=== PATIENT | female | born 2000 | race Hispanic/Latino ===

== ENCOUNTER 2019-12-27 18:37 | Inpatient (IN) | payer BC, OTHER ==
[~2019-12-27 18:37] MED LIST: Bupivacaine HCl 0.5%/Epinephrine 1:200,000/PF 30 ml Vial ONE; Bupivacaine/Epinephrine 0.25% 30 ML VIAL ONE; Lidocaine 2% MPF 10 ML AMP (For Epidural Use) ONE
[2019-12-27 19:17] VITALS: BMI 44.9
[2019-12-27] MEDS ORDERED: NS / Oxytocin 40 units/1000ml 1,000 ML IV PRN (19:38)
[2019-12-27] MEDS ORDERED: Ondansetron PF 4 MG/2 ML Vial IVP PRN (19:38)
[2019-12-27] MEDS ORDERED: Lidocaine 1% (PF) 30 ML VIAL SC PRN (19:38)
[2019-12-27] MEDS ORDERED: hydrALAZINE 20 MG/ML VIAL SLOW IVP PRN (19:38)
[2019-12-27] MEDS ORDERED: Promethazine HCl 25 MG/ML VIAL IM PRN (19:38)
[2019-12-27] MEDS ORDERED: Misoprostol 200 MCG TAB PR PRN (19:43)
[2019-12-27] MEDS ORDERED: Ibuprofen 800 MG TAB PO PRN (19:43)
[2019-12-27] MEDS ORDERED: Carboprost 250 MCG/ML AMP IM PRN (19:43)
[2019-12-27] MEDS ORDERED: Methylergonovine 0.2 MG/ML VIAL IM PRN (19:43)
[2019-12-27] MEDS ORDERED: Diphenoxylate HCl/Atropine Tablet PO PRN ×2 (19:43)
--- NOTE | 2019-12-27 19:55 | PDOC.LDHP ---
Labor and Delivery H&P Chief complaint: loss of fluid HPI: 19YO @ 38.4 WGA presenting for suspected SROM. Reports earlier today while sitting at home @ ~1300 she felt a sudden gush of clear fluid & every time she got up since she felt continued LOF. States she lost her mucus plug yesterday. Denies any abnormal vaginal DC or VB. + FM. No reported complications this . Current gestational age (weeks): 38 (38.4) Due date: 01/06/20 Dating criteria: last menstrual period Grav: 1 Para: 0 OB History Details: UTI in early s/p treatment, no other issues Current complications: other (late to care/transfer from [place] & reported UTI s/p tx early in ) Abnormal US findings: No Past Medical History: none Current medications: pre- vitamins Previous surgical history: other (tonsillectomy) Allergies/Adverse Reactions: Allergies Allergy/AdvReac Type Severity Reaction Status Date / Time No Known Drug Allergies Allergy Verified 12/27/19 19:08 Social history: none - Physical Exam Vital signs reviewed and normal: yes General: NAD, resting Heart: RRR Lungs: nonlabored breathing Abdomen: NTTP Extremeties: no edema FHT: category 1 [place] contractions every: 4-10 minutes - Vaginal Exam cm dilated: 1 (1.5) Effacement: 50% (40%) Station: -2 - OB Labs Blood type: O RH: positive Antibody Screen: negative HIV: negative RPR: negative HEPSAg: negative 1 hour GCT: negative (74) GBS: negative Urine drug screen: negative Rubella: immune - Assessment L&D Assessment: term rupture in membranes - Plan Plan: admit to L&D -: 19YO @ 38.4 WGA who presented for SROM earlier today. Term SROM: - Confirmed on exam on arrival. No regular painful contractions noted on monitor so far. FHTs cat 1. SVE 1.5/40/-2. Will admit to L&D for routine labor management & augmentation if contractions do not become more regular over the next few hours. Dispo: Admit to L&D for routine labor management. Addendum - Attending - Attending Attestation Date/Time: 12/28/19 0038 I personally evaluated the patient and discussed the management with Dr. Thompson. I agree with the History, Examination, Assessment and Plan documented above.
[2019-12-27 21:03] LABS: Hemoglobin 10.7 g/dL (12.0-16.0); Mean Corpuscular HGB CONC 33.3 g/dL (32.0-36.0); Mean Corpuscular Hemoglobin 26.8 pg (27.0-31.0); Mean Corpuscular Volume 80.6 fL (78.0-98.0); Mean Platelet Volume 7.5 fL (7.4-10.4); Platelet Count 170 thou/uL (130-400); RBC Distribution Width 14.3 % (11.5-14.5); Red Blood Cell (RBC) Count 3.99 mill/uL (4.20-5.40); White Blood Cell (WBC) Count 10.4 thou/uL (4.8-10.8)
[2019-12-27 21:41] LABS: Syphilis Antibody Nonreactive (Nonreactive); Syphilis Antibody Index 0.04 S/CO (<1.00 Non-Reactive)
[2019-12-27] MEDS ORDERED: NS w/ Oxytocin 10 units 500 ML IV SCH (22:15)
[2019-12-27 22:16] LABS: HBSAg Index 0.13 S/CO (0-0.99); Hep B Surf Ag Non-Reactive S/CO (NonReactive)
[2019-12-28] MEDS: Lactated Ringer's 1,000 ML IV SCH ×3 (03:31→10:13)
[2019-12-28] MEDS: NS w/ Oxytocin 10 units 500 ML IV SCH (03:32)
[2019-12-28] MEDS ORDERED: Butorphanol Tartrate 1 MG/ML VIAL ONE (04:36)
[2019-12-28] MEDS ORDERED: Butorphanol Tartrate 1 MG/ML VIAL SLOW IVP PRN (04:37)
--- NOTE | 2019-12-28 06:48 | PDOC.LDPN ---
Labor & Delivery Progress Note - Subjective Subjective: painful contractions - Objective Vital signs reviewed and normal: yes General: NAD, breathing through contractions Dilation: 2 Effacement: 50% Station: -2 FHT: category 1 [place] contractions every: 3 minutes Resuscitative measures: maternal IV fluids - Assessment (1) Spontaneous rupture of amniotic membranes Code(s): [id number] - Current Visit: Yes Status: Acute (2) Term Code(s): Z34.90 - ENCNTR FOR SUPRVSN OF NORMAL , UNSP, UNSP TRIMESTER Current Visit: Yes Status: Acute Plan: continue plan of care -: Term IOL 05/12 SROM: - Persistent Cat 1 strip. Pain controlled with IV stadol. Does not want epidural for now. SVE /-2 @ 0334. Will continue to titrate pitocin to maintain adequate contractions as tolerated by fetus. Dispo: Continue routine labor management w/ pitocin for labor augmentation. Addendum - Attending - Attending Attestation Date/Time: 12/28/19 7784 I personally evaluated the patient and discussed the management with Dr. Thompson. I agree with the History, Examination, Assessment and Plan documented above.
[2019-12-28] MEDS ORDERED: Fentanyl 4 mcg/Bup 0.1% Cadd 100 ML ONE ×2 (07:07→15:35)
[2019-12-28] MEDS ORDERED: Naloxone HCl 0.4 mg/ml Vial IVP PRN ×4 (10:48→23:06)
[2019-12-28] MEDS ORDERED: Ondansetron PF 4 MG/2 ML Vial IVP PRN ×2 (10:48→23:06)
[2019-12-28] MEDS ORDERED: diphenhydrAMINE 50 MG/ML VIAL IVP PRN ×2 (10:48→23:06)
[2019-12-28] MEDS ORDERED: EPHEDRINE 25 MG/5 ML SYRINGE SLOW IVP PRN (10:48)
[2019-12-28] MEDS ORDERED: Promethazine HCl 25 MG/ML VIAL IM PRN ×2 (10:48→23:06)
[2019-12-28] MEDS ORDERED: Lactated Ringer's 500 ML IV PRN (10:48)
[2019-12-28] MEDS ORDERED: Acetaminophen 325 MG TAB PO PRN (10:48)
[2019-12-28] MEDS ORDERED: Communication Order-Pharmacy FS SCH ×2 (11:00→23:15)
[2019-12-28] MEDS ORDERED: Fentanyl 4 mcg/Bupivacaine 0.1% Cassette 100 ML EPIDURAL SCH (11:00)
[2019-12-28 14:49] LABS: SARS-CoV-2 MS2 Positive; SARS-CoV-2 N Gene Negative; SARS-CoV-2 S Gene Negative; SARS-CoV-2 by NAA Not Detected (NotDetected); SARS-CoV-2 orf1ab Negative
[2019-12-28] MEDS ORDERED: Bicitra 30 ML UDCUP PO SCH (21:00)
[2019-12-28] MEDS ORDERED: CEFAZOLIN 3 GM in Premix Bag 1 BAG IVPB SCH (21:00)
[2019-12-28] MEDS ORDERED: Azithromycin 500 MG in Sodium Chloride 0.9% 250 ML 250 ML IVPB SCH (21:00)
[2019-12-28] MEDS ORDERED: CEFAZOLIN 3 GM in Sodium Chloride 0.9% 100 ML IVPB SCH (22:15)
[2019-12-28] MEDS ORDERED: Lidocaine 2% 10 ML INJ ONE (22:29)
[2019-12-28] MEDS ORDERED: Dexamethasone 4 mg/ml Vial ONE (22:29)
[2019-12-28] MEDS ORDERED: PHENYLEPHRINE-NS 100 MCG/ML 10 ML SYRINGE ONE (22:29)
[2019-12-28] MEDS ORDERED: Oxytocin 10 UNITS/ML VIAL ONE (22:29)
[2019-12-28] MEDS ORDERED: Ondansetron PF 4 MG/2 ML Vial ONE (22:29)
[2019-12-28] MEDS ORDERED: Promethazine HCl 25 MG/ML VIAL ONE (22:53)
[2019-12-28] MEDS ORDERED: Methylergonovine 0.2 MG/ML VIAL ONE (22:55)
[2019-12-28] MEDS ORDERED: Misoprostol 200 MCG TAB ONE (22:55)
[2019-12-28] MEDS ORDERED: Meperidine HCl/PF 25 MG/ML VIAL SLOW IVP PRN (23:06)
[2019-12-28] MEDS ORDERED: Naloxone HCl 0.4 mg/ml Vial IV PRN (23:06)
[2019-12-28] MEDS ORDERED: HYDROmorphone 2 MG/ML VIAL SLOW IVP PRN (23:06)
[2019-12-28] MEDS ORDERED: L&D-Morphine 4 MG/ML VIAL SLOW IVP PRN (23:06)
[2019-12-28] MEDS ORDERED: Ondansetron HCl/PF 4 MG/2 ML Vial IVP PRN (23:06)
[2019-12-28] MEDS ORDERED: Promethazine HCl 25 MG SUPP PR PRN (23:06)
[2019-12-28] MEDS ORDERED: Midazolam HCl 2 mg/2 ml Vial ONE (23:13)
[2019-12-28] MEDS ORDERED: Fentanyl 100 MCG/2 ML VIAL ONE (23:27)
[2019-12-28] MEDS ORDERED: Ketamine 50 MG/ML (10ML VIAL) ONE (23:29)
--- NOTE | 2019-12-29 01:40 | PDOC.OPDEL ---
OB Operative/Delivery Note - Additional Findings/Plan Compilations/Other Findings: Date of Procedure: 12/28/2019 Primary Surgeon: Dr. Manish Newell Resident Surgeon: Dr. Walter Pruitt Procedure: Repeat low transverse caesarean section Preoperative Diagnosis: 1)Term intrauterine 2)Arrest of labor 3)Prelabor Rupture of Membranes Postoperative Diagnosis: 1)same as above Anesthesia: spinal Indications: The patient is a 19 year old G1,P0 female at 38.5 weeks gestation who presented to L&D for PROM and failed induction of labor. Procedure in Detail: After risks, benefits, and alternatives were explained to the patient, she gave informed consent. Pre-operative antibiotics included Cefazolin 3 gram IV and Azithromycin 500mg IV. The patient was taken to the operating room. She was placed in the supine position with a left tilt and prepped and draped in usual sterile fashion. Epidural anesthesia was confirmed adequate with testing. A Pfannenstiel incision was made with a scalpel and was bluntly carried down to the level of the fascia which was sharply nicked. The fascial cut was extended bilaterally with Waddell sissors. The inferior and superior edges of the cut fascial edges were elevated with Tye clamps and the underlying rectus muscles were bluntly dissected free. The recti were divided digitally and retracted manually. The peritoneum was knicked with a waddell scissors, digitally entered and retracted manually. The uterine surface was explored to ensure no anterior adhesions. Yusuf-O device was placed. Bladder flap was created with Metzenbaum scissors. A low transverse score was made with the scalpel and the uterus was entered in the midline with a hemostat. Clear fluid was seen. The hysterotomy was extended manually. The infant was noted to be vertex and was easily delivered by fundal pressure. Mouth and nares were bulb suctioned. Cord clamped and cut and grossly normal female was handed to waiting nurse. Cord blood was obtained. Placenta was manually extracted, found to be intact with 3 vessel cord and discarded. The endometrium was curetted with a dry lap. Bleeding edges were clamped with ring forceps. The uterus was closed with a running locking #1 mono followed by a running non-locking #1 mono horizontal imbricating suture. The serosal edge of bladder flap had a few small bleeders that were cauterized. Following this hemostasis was noted. The abdomen was irrigated with saline and suctioned free of clots. The yusuf-o device was removed and the hysterotomy was again noted to be hemostatic. The peritoneum was closed with 2-0 chromic. The fascia was closed with a running non-locking 0- Vicryl suture. The subcutaneous tissue was irrigated and closed with a running 2 layer stitch with 2-0 plain. The skin was approximated with a running subcuticular 4-0 monocryl. The patient tolerated the procedure well and was taken to the recovery room in stable condition. QBL Blood Loss: 975 ml Complications: None Specimens: Cord blood sent to lab for blood type Findings: Grossly normal female with Apgars of 8 and 9. Grossly normal placenta with 3 vessel cord discarded. Drains: Nguyen to gravity draining blood tinged urine (blood tinged prior to c- section likely due to labor trauma)
[2019-12-29] MEDS ORDERED: Ondansetron PF 4 MG/2 ML Vial IVP PRN (01:58)
[2019-12-29] MEDS ORDERED: HYDROcodone/Acetaminophen 5/325 mg Tablet PO PRN ×3 (01:58→09:04)
[2019-12-29] MEDS ORDERED: Lanolin Ointment 7 GM TUBE TOP PRN (01:58)
[2019-12-29] MEDS ORDERED: hydrALAZINE 20 MG/ML VIAL SLOW IVP PRN (01:58)
[2019-12-29] MEDS ORDERED: Simethicone Chewable 80 MG TAB PO PRN (01:58)
[2019-12-29] MEDS ORDERED: diphenhydrAMINE 25 MG CAP PO PRN (01:58)
[2019-12-29] MEDS: Ketorolac Tromethamine 30 MG/ML VIAL IVP SCH ×2 (04:41→14:40)
--- NOTE | 2019-12-29 08:18 | PRG ---
DATE OF SERVICE: 12/29/2019 SUBJECTIVE: Patient is postop day #1, status post a primary for arrest of labor. At this point in time, she still has a Nguyen in place. She is tolerating liquid, having good pain control. OBJECTIVE: VITAL SIGNS: This morning, blood pressure is 118/65, temperature 98.1, pulse of 78, respiratory rate of 18. GENERAL: She appears to be in no acute distress. She is alert, oriented, cooperative, and pleasant to interact with. ABDOMEN: Fundus is firm. Incision is clean, dry, and intact, covered with a dressing. ASSESSMENT AND PLAN: Anticipate discharge of Nguyen today. Advance diet and assess pain control. Job ID: [id number]
[2019-12-29] MEDS ORDERED: Adacel (T-DAP) 0.5 ML SYRINGE IM ONE (09:00)
[2019-12-29] MEDS: Ferrous Sulfate 325 MG TAB PO SCH ×2 (09:31→17:09)
[2019-12-29] MEDS: Prenatal Vitamin 1 TAB PO SCH (09:31)
[2019-12-29] MEDS: HYDROcodone/Acetaminophen 5/325 mg Tablet PO PRN ×2 (16:32→22:10)
[2019-12-29] MEDS: Ibuprofen 800 MG TAB PO SCH (22:09)
[2019-12-30] MEDS: HYDROcodone/Acetaminophen 5/325 mg Tablet PO PRN ×3 (04:32→20:38)
[2019-12-30 05:47] LABS: Hemoglobin 8.5 g/dL (12.0-16.0); Mean Corpuscular HGB CONC 33.9 g/dL (32.0-36.0); Mean Corpuscular Hemoglobin 27.6 pg (27.0-31.0); Mean Corpuscular Volume 81.6 fL (78.0-98.0); Mean Platelet Volume 8.1 fL (7.4-10.4); Platelet Count 158 thou/uL (130-400); RBC Distribution Width 14.4 % (11.5-14.5); Red Blood Cell (RBC) Count 3.09 mill/uL (4.20-5.40); White Blood Cell (WBC) Count 9.8 thou/uL (4.8-10.8)
--- NOTE | 2019-12-30 06:16 | PDOC.PP ---
Post Progress Note Post Day #: POD2 Subjective: Doing well. No c/o. PO intake tolerated: yes Flatus: yes Ambulation: yes Vital Signs (12 hours) Temp Pulse Resp BP Pulse Ox 12/30/19 04:25 98.2 F 72 16 114/62 98 12/30/19 00:40 98.1 F 76 20 108/53 L 97 12/29/19 20:40 98.6 F 72 16 99/56 L 97 Weight Weight 122.47 kg - Physical Examination General: NAD Respiratory: non-labored breathing Abdominal: appropriately TTP Skin: CS incision dry & intact Neurological: no gross focal deficits Psychiatric: normal affect Result Diagrams: 12/30/19 05:23 Additional Labs: Post Labs Hep Bs Antigen Non-Reactive S/CO (NonReactive) 12/27/19 20:06 Blood Type O POSITIVE 12/27/19 21:39 (1) Spontaneous rupture of amniotic membranes Code(s): [id number] - Status: Acute (2) Term Code(s): Z34.90 - ENCNTR FOR SUPRVSN OF NORMAL , UNSP, UNSP TRIMESTER Status: Acute - Assessment/Plan Doing well. Ambulate. Advance diet. Routine postop care. Anticipate home 12/30.
[2019-12-30] MEDS: Ibuprofen 800 MG TAB PO SCH ×3 (06:39→20:38)
[2019-12-30] MEDS: Ferrous Sulfate 325 MG TAB PO SCH ×2 (07:41→16:34)
[2019-12-30] MEDS: Prenatal Vitamin 1 TAB PO SCH (07:41)
[2019-12-30] MEDS: Ketorolac Tromethamine 30 MG/ML VIAL IVP SCH (07:49)
[2019-12-30] MEDS: NS w/ Oxytocin 10 units 500 ML IV SCH (07:51)
[2019-12-31] MEDS: Ibuprofen 800 MG TAB PO SCH ×2 (05:42→13:44)
[2019-12-31] MEDS: Ferrous Sulfate 325 MG TAB PO SCH ×2 (08:26→18:29)
[2019-12-31] MEDS: Prenatal Vitamin 1 TAB PO SCH (08:26)
[2019-12-31 09:29] VITALS: BP 127/64; TEMP 98.1
--- NOTE | 2019-12-31 10:53 | PDOC.BPN ---
- Brief Progress Note Encounter Date: 12/31/19 Encounter Time: 10:50 Patient was DC'd to home earlier per Dr Newell. Will keep as B&B courtesy stay.
[2019-12-31] MEDS: HYDROcodone/Acetaminophen 5/325 mg Tablet PO PRN (11:58)
--- NOTE | 2020-01-01 04:54 | PQF ---
CLINICAL DOCUMENTATION CLARIFICATION FORM: Dear : Gian Chavez Date / Time: 01/01/20453 Please exercise your independent, professional judgment in responding to the clarification form. Clinical indicators are provided on the bottom of this form for your review I did not take care of this patient so I cannot answer Please check appropriate box(es): [ ] Associated Diagnosis: Acute blood loss anemia [ ] Abnormal laboratory findings not clinically significant [ ] Other diagnosis [ ] Unable to determine In addition, please specify: Present on Admission (POA): [ ] Yes [ ] No [ ] Unable to determine Physician Signature: Date/Time: For continuity of documentation, please document condition throughout progress notes and discharge summary. Thank You. To be completed by CDI/Coding staff for physician review: Present Clinical Indicators - Signs / Symptoms / Labs Results and Location in Medical Record [X] BP 120/72, Pulse 93, Resp 18, Temp 99.0 Vital signs 12/26 [X] RBC 3.99, Hgb 10.7, Hct 32.2 Laboratory 12/26 [X] RBC 3.09, Hgb 8.5, Hct 25.2 Laboratory 12/29 [X] QBL blood loss: 975 ml Delivery note p1 12/27 Dr Newell [X] Blood tinged urine likely due to labor trauma Delivery note p1 12/27 Dr Newell Present Risk Factors Results and Location in Medical Record [X] Term IUP Delivery note p1 12/27 Dr Newell [X] Arrest of labor Delivery note p1 12/27 Dr Newell [X] s/p CS Delivery note p1 12/27 Dr Newell Present Treatments Results and Location in Medical Record [X] Series of Hgb and Hct labs Collected 12/26 [X] Ferrous Sulfate 325 mg Oral JUN 16 [X] Lactated Ringers 1L JUN 16 CDS/Family Service Counselor Signature: Jolly Alvesnicola Phone #: ext [phone] Date/Time: 01/01/20201 This is a permanent part of the Medical Record [facility]
--- NOTE | 2020-01-01 18:28 | PQF ---
CLINICAL DOCUMENTATION CLARIFICATION FORM: Dear : Manish Newell Date / Time: 01/01/201826 Please exercise your independent, professional judgment in responding to the clarification form. Clinical indicators are provided on the bottom of this form for your review Please check appropriate box(es): [x ] Associated Diagnosis: Acute blood loss anemia [ ] Abnormal laboratory findings not clinically significant [ ] Other diagnosis [ ] Unable to determine In addition, please specify: Present on Admission (POA): [ ] Yes [ ] No [ ] Unable to determine Physician Signature: Date/Time: For continuity of documentation, please document condition throughout progress notes and discharge summary. Thank You. To be completed by CDI/Coding staff for physician review: Present Clinical Indicators - Signs / Symptoms / Labs Results and Location in Medical Record [X] BP 120/72, Pulse 93, Resp 18, Temp 99.0 Vital signs 12/26 [X] RBC 3.99, Hgb 10.7, Hct 32.2 Laboratory 12/26 [X] RBC 3.09, Hgb 8.5, Hct 25.2 Laboratory 12/29 [X] QBL blood loss: 975 ml Delivery note p1 12/27 Dr Newell [X] Blood tinged urine likely due to labor trauma Delivery note p1 12/27 Dr Newell Present Risk Factors Results and Location in Medical Record [X] Term IUP Delivery note p1 12/27 Dr Newell [X] Arrest of labor Delivery note p1 12/27 Dr Newell [X] s/p CS Delivery note p1 12/27 Dr Newell Present Treatments Results and Location in Medical Record [X] Series of Hgb and Hct labs Collected 12/26 [X] Ferrous Sulfate 325 mg Oral JUN 16 [X] Lactated Ringers 1L JUN 16 CDS/Manager Marketing Communications Signature: Jolly Alvesnicola Phone #: ext [phone] Date/Time: 01/01/20201826 This is a permanent part of the Medical Record [facility]
== END 2019-12-31 18:30 | disposition home or self-care (01) | DRG 787 ==
LOC: L&D/OP 18:37 → L&D 19:53 → 3SW 12-29 02:55
PROVIDERS: ADMIT Obstetrics & Gynecology; ATTEND Obstetrics & Gynecology
PROC: 3E033VJ Introduction of Other Hormone into Peripheral Vein, Percutaneous Approach (ICD-10-PCS; 2019-12-28)
PROC: 10D00Z1 Extraction of Products of Conception, Low, Open Approach (ICD-10-PCS; principal; 2019-12-29)
DX: O62.1 Secondary uterine inertia (principal); D62 Acute posthemorrhagic anemia; Z3A.38 38 weeks gestation of pregnancy; Z37.0 Single live birth; Z20.828 Contact with and (suspected) exposure to other viral communicable diseases; O61.0 Failed medical induction of labor; O71.89 Other specified obstetric trauma; Z87.440 Personal history of urinary (tract) infections; O90.81 Anemia of the puerperium
CPT/HCPCS: 36415; 51702; 85027; 86780; 86850; 86900; 86901; 87340; 87635; 99285; J0456; J0595; J0670; J0690; J1100; J1200; J1885; J2001; J2210; J2250; J2270; J2405; J2550; J2590; J3010; J3490; J7050; U0003